=== PATIENT | female | born 1980 | race Caucasian/White ===

== ENCOUNTER → 2021-05-27 08:42 | Outpatient (CLI) | payer BC, SELFPAY ==
--- NOTE | ~2021-05-27 | MR_ITS ---
EXAMINATION: MR brain/brain stem wo/w con DATE: 05/27/2021 09:41 INDICATION: Headache. TECHNIQUE: Magnetic resonance imaging (MRI) of the brain and brainstem was performed without and with 20 mL MultiHance intravenous contrast. Sequences included sagittal and axial T1-weighted FSE, axial diffusion-weighted FS EPI, axial T2*-weighted GRE, axial T2-weighted FLAIR Propeller, and axial T2-we ighted Propeller. Postcontrast sequences included axial and coronal T1-weighted FSE. Apparent diffusi on coefficient (ADC) maps were created. COMPARISON: None. FINDINGS: There is no intracranial hemorrhage, acute infarction, or abnormal intracranial mass lesion . The ventricles are normal in size. There is mucosal thickening in the paranasal sinuses. The orbits are normal. The mastoid air cells are normal. IMPRESSION: 1. Normal brain. Reviewed, dictated and finalized at location A. HOUSE KEEPER IMPRESSION: 1. Normal brain.
[2021-05-27 09:23] LABS: Estimated Glomerular Filt Rate > 60
== END ==
PROVIDERS: PCP Physician Assistant Medical; Visit Provider Physician Assistant Medical
DX: G44.86 Cervicogenic headache (principal)
CPT/HCPCS: 70553; A9577

== ENCOUNTER → 2022-01-04 08:51 | Outpatient (CLI) | payer BC, SELFPAY ==
--- NOTE | ~2022-01-04 | MMUS_ITS ---
EXAMINATION: MM diagnostic karyna BI w taylor, US breast BI limited HISTORY: Palpable breast abnormalities. TECHNIQUE: Additional 3-D tomosynthesis images of the breasts were performed and synthetic 2-D images were generated. CAD analysis was submitted and interpreted. High resolution limited bilateral breast ultrasound was performed. COMPARISON: None BREAST PARENCHYMAL COMPOSITION: Breast composed of scattered areas of fibroglandular density FINDINGS: MAMMOGRAPHIC FINDINGS: There are no suspicious masses, calcifications or architectural distortion in either breast to sugges t malignancy ULTRASOUND: Limited right breast ultrasound: At 4:00, 13 cm from the nipple, there is an irregular shaped hypoech oic mass with some angular margins, parallel orientation, no posterior features and no internal vascu larity measuring 6 x 3 x 6 mm. Left axillary ultrasound: In the area of palpable concern there are 2 oval hypoechoic masses with par allel orientation, no posterior features and internal vascularity measuring 6 and 3 mm respectively. These are most likely benign IMPRESSION: 1. Suspicious right breast mass at 4:00, 13 cm from the nipple measuring 6 mm. Ultrasound-guided righ t breast biopsy recommended. 2. Probable benign left axillary masses. Six-month follow-up left ultrasound recommended. BI-RADS CATEGORY 4-SUSPICIOUS ABNORMALITY Reviewed, dictated and finalized at location A. IMPRESSION: 1. Suspicious right breast mass at 4:00, 13 cm from the nipple measuring 6 mm. Ultrasound-guided right breast biopsy recommended. 2. Probable benign left axillary masses. Six-month follow-up left ultrasound re commended. BI-RADS CATEGORY 4-SUSPICIOUS ABNORMALITY
== END ==
PROVIDERS: PCP Physician Assistant Medical; Visit Provider Physician Assistant Medical
DX: R92.8 Other abnormal and inconclusive findings on diagnostic imaging of breast (principal)
CPT/HCPCS: 76642; 77062; 77066; G0279

== ENCOUNTER 2022-01-25 12:37 | Outpatient (CLI) | payer BC, SELFPAY ==
--- NOTE | ~2022-01-25 | US_ITS ---
US breast RT limited DATE: 01/25/2022 13:23 INDICATION: The patient presented for ultrasound-guided biopsy of an irregular hypoechoic 6 x 3 x 6 m m mass with angular margins at 4:00 13 cm from the nipple. TECHNIQUE: Real-time and color flow imaging targeted to 4:00 lesion 13 cm from nipple COMPARISON: 01/04/2022 11 diagnostic mammogram and Limited breast ultrasound examination FINDINGS: There is interval decreased size of the hypoechoic lesion at the 4:00 position 13 cm from t he nipple, currently measuring 5.4 x 3.2 x 3.5 mm. There is suggestion of a subcutaneous tract to the skin. This may be a small sebaceous cysts. Interval decreased size since 01/04/2022 further supports benign diagnosis. The biopsy therefore was not performed. 6 month targeted ultrasound follow-up of 4:00 13 cm from nipp le is recommended. IMPRESSION: BI-RADS Category 3: Probably benign finding. Probable sebaceous cyst, diminished in size since 01/04/2022 Recommendation: 6 month targeted right breast ultrasound follow-up of 4:00 13 cm from nipple Reviewed, dictated and finalized at [facility]. Reviewed, dictated and finalized at location A. STACK DEVELOPER IMPRESSION: BI-RADS Category 3: Probably benign finding. Probable sebaceous cys t, diminished in size since 01/04/2022 Recommendation: 6 month targeted right breast ultrasound follow-up of 4:00 13 c m from nipple
== END 2022-01-25 12:38 | disposition home or self-care (01) ==
PROVIDERS: PCP Physician Assistant Medical; Visit Provider Surgery
DX: R92.8 Other abnormal and inconclusive findings on diagnostic imaging of breast (principal)
CPT/HCPCS: 76642